=== PATIENT | female | born 1975 | race Caucasian/White ===

== ENCOUNTER 2021-12-16 11:13 | Emergency (ER) | payer OTHER ==
[~2021-12-16 11:13] MED LIST: ALBUTEROL2.5 MG/3 M INH; NAPROSYN500 MG PO; NEBULIZER UNIT; PENVEE K 500 M500 MG PO
[2021-12-16] MEDS ORDERED: ULTRAM50 MG PO (12:12)
== END 2021-12-16 12:18 | disposition home or self-care (01) ==
LOC: ER1 11:13
DX: S92.352A Displaced fracture of fifth metatarsal bone, left foot, initial encounter for closed fracture (principal); X58.XXXA Exposure to other specified factors, initial encounter
CPT/HCPCS: 73620; 99283